=== PATIENT | male | born 1985 | race Caucasian/White ===

== ENCOUNTER 2016-08-28 00:31 | Emergency (ER) | payer OTHER ==
[~2016-08-28 00:31] MED LIST: PERCOCET 325 MG1 TA2 PO
--- NOTE | 2016-08-28 00:48 | ED HAND/WRIST INJURY COMPLAINT ---
History of Present Illness General Chief Complaint: Laceration Procedure Stated Complaint: LAC TO RIGHT HAND THUMB Source: patient Exam Limitations: no limitations Vital Signs & Intake/Output Vital Signs & Intake/Output Vital Signs Date Time Temp Pulse Resp B/P Pulse O2 O2 Flow FiO2 Ox Delivery Rate 08/28 0058 98.7 92 18 158/102 99 Room Air Allergies Coded Allergies: NO KNOWN ALLERGIES (12/20/12) Reconcile Medications Ibuprofen 600 MG TABLET 1 TAB PO TID PRN pain with food OXYCODONE HCL/ACETAMINOPHEN (Percocet 5-325 MG Tablet) 325 MG/5 MG TAB 1-2 TAB PO Q4-6 PRN PRN PAIN Triage Nurses Notes Reviewed? yes Occurred: just prior to arrival Duration: minute(s): Timing: single episode today Injury Environment: home Severity: moderate Pain/Injury Location: Right: 1st finger. Context: incision Method of Injury: laceration Modifying Factors: Improves With: rest. Worsens With: movement. Associated Symptoms: bleeding HPI: 30 yo gentleman presents with a right finger laceration. "I was taking out the garbage and I think I cut it on some glass.... around 8pm... it kept on bleeding and so I came in." He is otherwise well and has no other concerns or complaints. Past History Travel History Traveled to [place] past 21 day No Medical History Any Pertinent Medical History? see below for history EENT: NONE Cardiovascular: NONE Respiratory: NONE Gastrointestinal: NONE Hepatic: NONE Renal: NONE Endocrine: NONE Surgical History Surgical History: none Psychosocial History What is your primary language Malay Family History Hx Contributory? No Review of Systems Review of Systems Constitutional: Reports: no symptoms. EENTM: Reports: no symptoms. Respiratory: Reports: no symptoms. Cardiovascular: Reports: no symptoms. GI: Reports: no symptoms. Genitourinary: Reports: no symptoms. Musculoskeletal: Reports: no symptoms. Skin: Reports: no symptoms. Neurological/Psychological: Reports: no symptoms. Hematologic/Endocrine: Reports: no symptoms. Immunologic/Allergic: Reports: no symptoms. All Other Systems: Reviewed and Negative Physical Exam Physical Exam General Appearance: well developed/nourished, mild distress Head: atraumatic Eyes: Bilateral: normal appearance. Ears, Nose, Throat: normal pharynx Neck: normal inspection Cardiovascular/Respiratory: normal breath sounds Back: normal inspection Hand Left: normal Hand Right: 1.5 cm laceration on palmar aspect of right thumb. mild bleeding. no sign of infection. superficial. Progress Differential Diagnosis: laceration vs other. Plan of Care: Current Medications Sig/Francia Start time Last Medication Dose Stop Time Status Admin Tetanus/Diphtheria 0.5 ML ONCE ONE 08/28 199 UNVr Toxoids Adsorbed 08/28 200 (Decavac) Diagnostic Imaging: Viewed by Me: Radiology Read. Discussed w/RAD: Radiology Read. Radiology Impression: right hand xray.... Departure Departure Disposition: HOME OR SELF CARE Condition: Stable Clinical Impression Primary Impression: Laceration of right thumb Referrals: PATIENT HAS NO PRIMARY CARE DR (PCP/Family) Departure Forms: Customer Survey General Discharge Information Prescriptions: Current Visit Scripts Ibuprofen 1 TAB PO TID PRN pain #10 TAB with food Procedures Laceration/Wound Repair Laceration/Wound Repair: Wound Location: right thumb Wound's Depth, Shape: linear Wound Length (cm): 1.5 Irrigated w/ Saline (ccs): 1000 Betadine Prep? Yes Anesthesia: 1% lidocaine Volume Anesthetic (ccs): 2 Suture Size/Type: 4:0, nylon Number of Sutures: 2 Date of Last Tetanus: 08/28/16 Tetanus Status: up to date
--- NOTE | 2016-08-28 01:40 | RADIOLOGY REPORT ---
EXAMINATION: XR HAND, RIGHT CLINICAL INFORMATION: Laceration, question foreign body COMPARISON: None TECHNIQUE: AP, lateral, and oblique views of the right hand. FINDINGS: Osseous alignment is anatomic. No acute fracture is seen. Dressing overlies the thumb, with no radiopaque foreign body identified. IMPRESSION: No radiopaque foreign body identified. No evidence of fracture.
[2016-08-28] MEDS ORDERED: IBUPROFEN600 M1 PO (01:46)
[2016-08-28 02:14] VITALS: BP 142/86
== END 2016-08-28 02:14 ==
LOC: ERH 00:31
DX: S61.011A Laceration without foreign body of right thumb without damage to nail, initial encounter (principal); W25.XXXA Contact with sharp glass, initial encounter
CPT/HCPCS: 73130-RT; 96372; J1885